=== PATIENT | male | born 1980 | race Caucasian/White ===

== ENCOUNTER 2022-01-29 17:36 | Emergency (ER) | payer MEDICAID ==
[~2022-01-29] VITALS: Ht 172.7 cm; Wt 130.0 kg
[2022-01-29] MEDS ORDERED: ondansetron 4mg rapidly disintigrating tab PO ONE (18:55)
[2022-01-29] MEDS ORDERED: HYDROcodone/acetaminophen 5mg/325mg tablet PO ONE (18:55)
[2022-01-29] MEDS ORDERED: HYDR-3965 PO (19:11)
--- NOTE | 2022-01-29 19:29 | NUR ---
pt reports throwing up norco given, pt states he is not nausea anymore.
[2022-01-29] MEDS ORDERED: morphine 4 MG/ML inj SYRINge IV ONE (19:30)
[2022-01-29] MEDS ORDERED: morphine 4 MG/ML inj SYRINge IM ONE (19:35)
[2022-01-29 19:49] VITALS: BP 133/87
== END 2022-01-29 19:53 | disposition home or self-care (01) ==
LOC: ER 17:37
DX: M26.69 Other specified disorders of temporomandibular joint (principal)
CPT/HCPCS: 96372; 99283; J2270

== ENCOUNTER 2022-01-29 22:32 | Emergency (ER) | payer MEDICAID, OTHER ==
[~2022-01-29] VITALS: Ht 170.2 cm; Wt 118.0 kg
[~2022-01-29 22:32] MED LIST: HYDR-3965 PO
[2022-01-29] MEDS ORDERED: ondansetron 4mg rapidly disintigrating tab PO ONE (23:30)
[2022-01-30] MEDS ORDERED: HYDROcodone/acetaminophen 5mg/325mg tablet PO ONE (00:05)
[2022-01-30 00:22] VITALS: BP 132/87
== END 2022-01-30 00:25 | disposition home or self-care (01) ==
LOC: ER 22:32
DX: M26.601 Right temporomandibular joint disorder, unspecified (principal); R68.84 Jaw pain; Z79.899 Other long term (current) drug therapy
CPT/HCPCS: 99283